=== PATIENT | female | born 1960 | race African-American/Black ===

== ENCOUNTER 2019-10-09 04:55 | Emergency (ER) | payer BC, OTHER ==
[~2019-10-09] VITALS: Ht 167.6 cm; Wt 61.0 kg
[2019-10-09 09:29] LABS: BASOPHILS % 0.3 % (0.0-2.0); EOSINOPHILS % 0.3 % (0.0-5.0); HEMATOCRIT. 33.3 % (36.0-48.0); HEMOGLOBIN. 11.1 g/dL (12.0-16.0); LYMPHOCYTES % 7.6 % (20.0-50.0); MEAN CORPUSCULAR HEMOGLOBIN 28.7 pg (28.0-32.0); MEAN CORPUSCULAR VOLUME 86.3 fL (81.0-99.0); MEAN PLATELET VOLUME 9.5 fl (7.4-10.4); MONOCYTES % 5.7 % (2.0-8.0); NEUTROPHILS % 86.1 % (40.0-76.0); PLATELET 170 x1000/uL (130-400); RED BLOOD CELL COUNT 3.86 mill/uL (4.2-5.4); RED CELL DISTRIBUTION WIDTH 14.4 % (11.6-14.6)
[2019-10-09 09:34] LABS: CHLORIDE 112 mEq/L (98-107)
[2019-10-09 11:01] VITALS: BP 120/60
== END 2019-10-09 11:01 | disposition home or self-care (01) ==
LOC: ER 04:55
DX: R55 Syncope and collapse (principal); F32.9 Major depressive disorder, single episode, unspecified; F03.90 Unspecified dementia, unspecified severity, without behavioral disturbance, psychotic disturbance, mood disturbance, and anxiety
CPT/HCPCS: 36415; 71045; 80053; 85025; 93005; 99284